=== PATIENT | male | born 1950 | race Caucasian/White ===

== ENCOUNTER → 2016-12-02 | Outpatient (CLI) | payer OTHER, MEDICARE ==
[~2016-12-02] MED LIST: AMLO10TA2 PO; APIX5TAB PO; ASPI-515 PO; CARV12.52 PO; CHOL20002 PO; DRON400T PO; FURO20TA3 PO; INDO50CA PO; LISI40TA PO; OMEP-110 PO; POTA10TA90 PO; SOTA80TA18 PO; TADA5TAB2 PO; TRIA1CAP3 PO
== END | disposition home or self-care (01) ==
LOC: CVU 07:52
PROVIDERS: ATTEND Internal Medicine Cardiovascular Disease
DX: I65.23 Occlusion and stenosis of bilateral carotid arteries (principal); I10 Essential (primary) hypertension; I48.91 Unspecified atrial fibrillation
CPT/HCPCS: 93925

== ENCOUNTER 2017-05-27 09:00 | Inpatient (IN) | payer OTHER, MEDICARE ==
[~2017-05-27] VITALS: Ht 180.3 cm; Wt 81.8 kg
[~2017-05-27 09:00] MED LIST changes: +POTA10TA6 PO; -POTA10TA90 PO
[2017-05-27 11:13] VITALS: BP 159/77
[2017-05-27] MEDS ORDERED: MULT-658 PO (11:47)
[2017-05-27] MEDS ORDERED: BISACODYL 5 MG EC TABLET PO PRN (13:00)
[2017-05-27] MEDS ORDERED: BISACODYL 10 MG SUPP PR PRN (13:00)
[2017-05-27] MEDS ORDERED: ACETAMINOPHEN 325 MG TABLET PO PRN (13:00)
[2017-05-27] MEDS ORDERED: ONDANSETRON 2MG/ML, 2ML IVPush PRN (13:00)
[2017-05-27] MEDS ORDERED: ZOLPIDEM 5MG TABLET PO PRN (13:00)
[2017-05-27 13:08] LABS: HEMOGLOBIN 17.3 g/dL (13.7-18.0)
[2017-05-27 13:17] LABS: BLOOD UREA NITROGEN 29 mg/dL (7-18)
[2017-05-27 13:21] LABS: IS PT STATUS REG ER OR PRE ER? NO
[2017-05-27] MEDS ORDERED: SOTALOL 80MG TABLET PO ONE (14:00)
[2017-05-27] MEDS ORDERED: POTASSIUM CHLORIDE 20 MEQ TAB.ER.PRT ONE (14:47)
[2017-05-27] MEDS ORDERED: FUROSEMIDE 20 MG/2 ML ONE (14:47)
[2017-05-27 15:05] VITALS: BP 134/75
[2017-05-27] MEDS: FUROSEMIDE 20 MG/2 ML IV SCH (15:08)
[2017-05-27] MEDS: POTASSIUM CHLORIDE 10 MEQ TABLET.ER PO SCH (15:09)
[2017-05-27 18:40] VITALS: BP 151/97
[2017-05-27 19:09] LABS: IS PT STATUS REG ER OR PRE ER? NO
[2017-05-27] MEDS: APIXABAN 5 MG TABLET PO SCH (20:53)
[2017-05-27] MEDS: SOTALOL 120MG TABLET PO SCH (20:53)
[2017-05-27 20:57] VITALS: BP 143/87
[2017-05-27] MEDS ORDERED: LISINOPRIL 20 MG TABLET PO SCH (21:00)
[2017-05-28 00:51] LABS: IS PT STATUS REG ER OR PRE ER? NO
[2017-05-28 02:00] VITALS: BP 135/79
[2017-05-28] MEDS ORDERED: OMEPRAZOLE 20 MG CAPSULE.DR PO SCH (07:30)
[2017-05-28] MEDS ORDERED: TRIAMTERENE-HCTZ 37.5/25 MG TABLET PO SCH (09:00)
[2017-05-28] MEDS ORDERED: AMLODIPINE 5 MG TABLET PO SCH (09:00)
[2017-05-28] MEDS ORDERED: LISINOPRIL 20 MG TABLET PO SCH (09:00)
[2017-05-28] MEDS: FUROSEMIDE 20 MG/2 ML IV SCH (09:08)
[2017-05-28] MEDS: SOTALOL 120MG TABLET PO SCH (09:08)
[2017-05-28] MEDS: POTASSIUM CHLORIDE 10 MEQ TABLET.ER PO SCH (09:08)
[2017-05-28] MEDS: APIXABAN 5 MG TABLET PO SCH (09:08)
[2017-05-28 09:11] VITALS: BP 153/80
[2017-05-28] MEDS ORDERED: SOTA120T14 PO (10:02)
== END 2017-05-28 11:30 | disposition home or self-care (01) | DRG 292 ==
LOC: 5SO 10:41 → DCLOUNGE 05-28 11:11
PROVIDERS: ADMIT Internal Medicine Cardiovascular Disease; ATTEND Internal Medicine Cardiovascular Disease
DX: I11.0 Hypertensive heart disease with heart failure (principal); D68.69 Other thrombophilia; I42.9 Cardiomyopathy, unspecified; I48.0 Paroxysmal atrial fibrillation; E66.01 Morbid (severe) obesity due to excess calories; I50.32 Chronic diastolic (congestive) heart failure; G47.33 Obstructive sleep apnea (adult) (pediatric); I34.0 Nonrheumatic mitral (valve) insufficiency; I35.1 Nonrheumatic aortic (valve) insufficiency; G89.29 Other chronic pain; K22.70 Barrett's esophagus without dysplasia; I25.10 Atherosclerotic heart disease of native coronary artery without angina pectoris; I73.9 Peripheral vascular disease, unspecified; Z68.25 Body mass index [BMI] 25.0-25.9, adult
CPT/HCPCS: 36415; 71020; 80048; 80061; 84439; 84443; 84484; 85014; 85018; 93005; J1940

== ENCOUNTER 2018-04-18 02:19 | Inpatient (IN) | payer OTHER, MEDICARE ==
[~2018-04-18] VITALS: Ht 180.3 cm; Wt 123.5 kg
[~2018-04-18 02:19] MED LIST changes: -INDO50CA PO; +INDO50CA5 PO; +MULT-658 PO; +SOTA120T14 PO
[2018-04-18] MEDS ORDERED: SODIUM CHLORIDE FLUSH 10ML SYR IVF ONE (02:30)
[2018-04-18 02:51] LABS: BASOPHILS # (AUTO) 0.04 x10^3/uL (0-0.1); BASOPHILS % (AUTO) 0 % (0-1); EOSINOPHILS # (AUTO) 0.13 x10^3/uL (0-0.4); EOSINOPHILS % (AUTO) 1 % (1-7); LYMPHOCYTES % (AUTO) 27 % (22-44); MD NO; MEAN CORPUSCULAR HEMOGLOBIN 31.6 pg (27.5-34.5); MEAN CORPUSCULAR HGB CONC 34.3 g/dL (33.2-36.2); MEAN CORPUSCULAR VOLUME 92.1 fL (81-97); MEAN PLATELET VOLUME 9.8 fL (7.4-10.4); MONOCYTES # (AUTO) 0.63 x10^3/uL (0.2-0.8); MONOCYTES % (AUTO) 7 % (2-9); NEUTROPHILS % (AUTO) 65 % (42-75); PLATELET COUNT 175 x10^3/uL (130-400); RED BLOOD COUNT 5.65 x10^6/uL (4.38-5.82); RED CELL DISTRIBUTION WIDTH 12.9 % (9.4-14.8)
[2018-04-18] MEDS ORDERED: OMEP20TA62 PO (02:53)
[2018-04-18 03:01] LABS: INTERNATIONAL NORMALIZED RATIO 1.08 (0.93-1.1); PROTHROMBIN TIME 11.1 Seconds (9.6-11.5)
[2018-04-18 03:12] LABS: ALANINE AMINOTRANSFERASE 47 U/L (12-78); ALBUMIN 3.8 g/dL (3.4-5.0); ANION GAP 5 mmol/L (5-15); CALCIUM 8.7 mg/dL (8.5-10.1); CHLORIDE 105 mmol/L (98-107); CREATININE 1.13 mg/dL (0.7-1.3)
[2018-04-18 03:16] LABS: ALKALINE PHOSPHATASE 53 U/L (45-117); BILIRUBIN,TOTAL 2.6 mg/dL (0.2-1.0); TOTAL PROTEIN 7.3 g/dL (6.4-8.2); TROPONIN I < 0.015 ng/mL (0.000-0.045)
[2018-04-18] MEDS ORDERED: FUROSEMIDE 20 MG/2 ML ONE (03:27)
[2018-04-18] MEDS ORDERED: FUROSEMIDE 40 MG/4 ML IV ONE (03:30)
[2018-04-18] MEDS ORDERED: ONDANSETRON 2MG/ML, 2ML IVPush PRN (04:00)
[2018-04-18] MEDS ORDERED: hydrALAzine 20 MG/ML, 1ML IVPush PRN (04:00)
[2018-04-18] MEDS ORDERED: BISACODYL 10 MG SUPP PR PRN (04:00)
[2018-04-18] MEDS ORDERED: POLYETHYLENE GLYCOL 17 GM PACKET PO PRN (04:00)
[2018-04-18] MEDS ORDERED: morphine SULFATE 10 MG/ML, 1ML IVPush PRN (04:00)
[2018-04-18] MEDS ORDERED: DOCUSATE 100 MG CAPSULE PO PRN (04:00)
[2018-04-18] MEDS ORDERED: ONDANSETRON ODT 4 MG PO PRN (04:00)
[2018-04-18] MEDS ORDERED: ACETAMINOPHEN 325 MG TABLET PO PRN (04:00)
[2018-04-18] MEDS ORDERED: OXYcodone/APAP 5/325MG TABLET PO PRN (04:00)
[2018-04-18] MEDS ORDERED: PROMETHAZINE 25 MG/ML, 1ML IM PRN (04:00)
[2018-04-18] MEDS ORDERED: LABETALOL 5MG/ML, 20ML IVPush PRN (04:00)
[2018-04-18 04:15] VITALS: BP 148/88
[2018-04-18] MEDS ORDERED: POTASSIUM CHLORIDE 20 MEQ TAB.ER.PRT PO ONE (04:30)
[2018-04-18 04:34] LABS: FREE T4 (FREE THYROXINE) 1.11 ng/dL (0.76-1.46); THYROID STIMULATING HORMONE 2.45 mIU/L (0.358-3.740)
[2018-04-18 05:10] LABS: HEMOGLOBIN A1C 5.8 % (4.2-6.3)
[2018-04-18 07:50] VITALS: BP 131/76
[2018-04-18] MEDS: OMEPRAZOLE 20 MG CAPSULE.DR PO SCH (08:01)
[2018-04-18] MEDS: APIXABAN 5 MG TABLET PO SCH ×2 (08:02→20:27)
[2018-04-18] MEDS: POTASSIUM CHLORIDE 20 MEQ TAB.ER.PRT PO SCH (08:02)
[2018-04-18] MEDS: MULTIVITAMIN 1 TABLET PO SCH (08:02)
[2018-04-18] MEDS: SOTALOL 120MG TABLET PO SCH ×2 (08:02→20:26)
[2018-04-18] MEDS: TRIAMTERENE-HCTZ 37.5/25 MG TABLET PO SCH (08:02)
[2018-04-18] MEDS: FUROSEMIDE 20 MG/2 ML IV SCH ×2 (08:04→18:32)
[2018-04-18 13:43] VITALS: BP 140/91
[2018-04-18 20:29] VITALS: BP 150/89
[2018-04-18] MEDS ORDERED: CHOLECALCIFEROL 1,000 UNIT TABLET PO SCH (21:00)
[2018-04-18] MEDS ORDERED: LISINOPRIL 20 MG TABLET PO SCH (21:00)
[2018-04-19 01:05] VITALS: BP 153/81
[2018-04-19 05:52] LABS: BASOPHILS # (AUTO) 0.04 x10^3/uL (0-0.1); BASOPHILS % (AUTO) 1 % (0-1); EOSINOPHILS # (AUTO) 0.19 x10^3/uL (0-0.4); EOSINOPHILS % (AUTO) 2 % (1-7); LYMPHOCYTES # (AUTO) 2.43 x10^3/uL (1-3.4); LYMPHOCYTES % (AUTO) 30 % (22-44); MD NO; MEAN CORPUSCULAR HEMOGLOBIN 31.6 pg (27.5-34.5); MEAN CORPUSCULAR HGB CONC 34.3 g/dL (33.2-36.2); MEAN CORPUSCULAR VOLUME 92.2 fL (81-97); MEAN PLATELET VOLUME 9.9 fL (7.4-10.4); MONOCYTES # (AUTO) 0.45 x10^3/uL (0.2-0.8); MONOCYTES % (AUTO) 6 % (2-9); NEUTROPHILS # (AUTO) 4.97 x10^3/uL (1.8-6.8); NEUTROPHILS % (AUTO) 62 % (42-75); PLATELET COUNT 153 x10^3/uL (130-400); RED BLOOD COUNT 5.78 x10^6/uL (4.38-5.82); RED CELL DISTRIBUTION WIDTH 13.6 % (9.4-14.8)
[2018-04-19 06:07] LABS: CHLORIDE 105 mmol/L (98-107)
[2018-04-19 06:19] LABS: ALANINE AMINOTRANSFERASE 47 U/L (12-78); ALBUMIN 3.6 g/dL (3.4-5.0); ALKALINE PHOSPHATASE 55 U/L (45-117); ANION GAP 8 mmol/L (5-15); BILIRUBIN,TOTAL 3.7 mg/dL (0.2-1.0); CALCIUM 8.9 mg/dL (8.5-10.1); CHOL/HDL RATIO 2.5; CHOLESTEROL, TOTAL 94 mg/dL (140-239); CREATININE 1.13 mg/dL (0.7-1.3); HDL CHOL % 40 % (26-37); HDL CHOLESTEROL (DIRECT) 38 mg/dL (40-60); LDL CHOLESTEROL,CALCULATED 29 mg/dL (54-169); LDL/HDL RATIO 0.8 (0.5-3.0); TOTAL PROTEIN 7.1 g/dL (6.4-8.2); TRIGLYCERIDES 137 mg/dL (50-200); VLDL CHOLESTEROL 27 mg/dL (0-25)
[2018-04-19 07:44] VITALS: BP 142/94
[2018-04-19] MEDS: TRIAMTERENE-HCTZ 37.5/25 MG TABLET PO SCH (08:44)
[2018-04-19] MEDS: MULTIVITAMIN 1 TABLET PO SCH (08:44)
[2018-04-19] MEDS: POTASSIUM CHLORIDE 20 MEQ TAB.ER.PRT PO SCH (08:44)
[2018-04-19] MEDS: SOTALOL 120MG TABLET PO SCH (08:45)
[2018-04-19] MEDS: APIXABAN 5 MG TABLET PO SCH (08:46)
[2018-04-19] MEDS: OMEPRAZOLE 20 MG CAPSULE.DR PO SCH (08:46)
[2018-04-19] MEDS: FUROSEMIDE 20 MG/2 ML IV SCH (08:46)
[2018-04-19] MEDS ORDERED: POTASSIUM CHLORIDE 20 MEQ TAB.ER.PRT PO ONE ×2 (09:00→11:00)
== END 2018-04-19 12:20 | disposition home or self-care (01) | DRG 292 ==
LOC: ED 03:43 → EDIP 03:44 → 5SO 04:10 → DCLOUNGE 04-19 12:00
PROVIDERS: ADMIT Internal Medicine; ATTEND Internal Medicine
DX: I11.0 Hypertensive heart disease with heart failure (principal); D68.69 Other thrombophilia; I48.0 Paroxysmal atrial fibrillation; I34.0 Nonrheumatic mitral (valve) insufficiency; E87.6 Hypokalemia; E66.01 Morbid (severe) obesity due to excess calories; G47.33 Obstructive sleep apnea (adult) (pediatric); G89.29 Other chronic pain; I50.23 Acute on chronic systolic (congestive) heart failure; I73.9 Peripheral vascular disease, unspecified; K22.70 Barrett's esophagus without dysplasia; Z68.38 Body mass index [BMI] 38.0-38.9, adult
CPT/HCPCS: 36415; 71045; 80053; 80061; 83036; 83735; 83880; 84100; 84436; 84439; 84443; 84484; 85025; 85610; 85730; 93005; 93306; 96374; J1940

== ENCOUNTER → 2018-05-11 | Outpatient (CLI) | payer OTHER, MEDICARE ==
[~2018-05-11] MED LIST changes: +OMEP20TA62 PO; +REGADENOSON 0.4 MG/5 ML SYRINGE ONE
== END | disposition home or self-care (01) ==
LOC: CFH 11:53
PROVIDERS: ATTEND Internal Medicine Cardiovascular Disease
DX: I48.2 Chronic atrial fibrillation (principal)
CPT/HCPCS: 78452; 93017; A9502; J2785

== ENCOUNTER 2018-07-08 06:03 | Observation (INO) | payer OTHER, MEDICARE ==
[2018-07-06 11:18] LABS: BASOPHILS # (AUTO) 0.03 x10^3/uL (0-0.1); BASOPHILS % (AUTO) 0 % (0-1); EOSINOPHILS # (AUTO) 0.19 x10^3/uL (0-0.4); EOSINOPHILS % (AUTO) 3 % (1-7); LYMPHOCYTES # (AUTO) 2.53 x10^3/uL (1-3.4); LYMPHOCYTES % (AUTO) 32 % (22-44); MD NO; MEAN CORPUSCULAR HGB CONC 34.4 g/dL (33.2-36.2); MEAN CORPUSCULAR VOLUME 92.8 fL (81-97); MEAN PLATELET VOLUME 10.2 fL (7.4-10.4); MONOCYTES # (AUTO) 0.53 x10^3/uL (0.2-0.8); MONOCYTES % (AUTO) 7 % (2-9); NEUTROPHILS # (AUTO) 4.56 x10^3/uL (1.8-6.8); NEUTROPHILS % (AUTO) 58 % (42-75); PLATELET COUNT 178 x10^3/uL (130-400); RED BLOOD COUNT 5.36 x10^6/uL (4.38-5.82); RED CELL DISTRIBUTION WIDTH 14.4 % (9.4-14.8)
[2018-07-06 11:28] LABS: ALANINE AMINOTRANSFERASE 35 U/L (12-78); ALBUMIN 3.7 g/dL (3.4-5.0); ANION GAP 6 mmol/L (5-15); CALCIUM 8.9 mg/dL (8.5-10.1); CHLORIDE 109 mmol/L (98-107)
[2018-07-06 11:30] LABS: ALKALINE PHOSPHATASE 61 U/L (45-117); BILIRUBIN,TOTAL 3.1 mg/dL (0.2-1.0); TOTAL PROTEIN 7.4 g/dL (6.4-8.2)
[~2018-07-08] VITALS: Ht 180.3 cm; Wt 120.4 kg
[~2018-07-08 06:03] MED LIST changes: -AMLO10TA2 PO; +AMLO10TA6 PO; +ATOR10TA9 PO; -CHOL20002 PO; +CHOL200052 PO; -REGADENOSON 0.4 MG/5 ML SYRINGE ONE; +SOTA120T26 PO
[2018-07-08] MEDS ORDERED: SODIUM CHLORIDE 0.9% 1,000 ML IV SCH (06:11)
[2018-07-08] MEDS ORDERED: MIDAZOLAM 1 MG/ML, 2ML ONE (07:52)
[2018-07-08] MEDS ORDERED: FENTANYL PF 250 MCG/5ML ONE (07:52)
[2018-07-08] MEDS ORDERED: SUCCINYLCHOLINE 20 MG/ML, 10ML ONE (08:07)
[2018-07-08] MEDS ORDERED: ONDANSETRON 2MG/ML, 2ML ONE (08:07)
[2018-07-08] MEDS ORDERED: ROCURONIUM 10 MG/ML,10ML ONE (08:07)
[2018-07-08] MEDS ORDERED: DEXAMETHASONE 4 MG/ML, 1ML ONE (08:07)
[2018-07-08] MEDS ORDERED: PROPOFOL 10 MG/ML, 20ML ONE (08:07)
[2018-07-08] MEDS ORDERED: HEPARIN 1,000 UNITS/ML, 30ML ONE (08:07)
[2018-07-08] MEDS ORDERED: PROTAMINE SULFATE 10 MG/ML, 5ML ONE (09:46)
[2018-07-08] MEDS ORDERED: ZOLPIDEM 5MG TABLET PO PRN (10:00)
[2018-07-08] MEDS ORDERED: ACETAMINOPHEN 325 MG TABLET PO PRN (10:00)
[2018-07-08] MEDS: APIXABAN 5 MG TABLET PO SCH ×2 (12:01→20:46)
[2018-07-08 14:30] VITALS: BP 135/83
[2018-07-08 19:39] VITALS: BP 111/64
[2018-07-08 20:43] VITALS: BP 123/77
[2018-07-08] MEDS: SOTALOL 120MG TABLET PO SCH (20:46)
[2018-07-08] MEDS: POTASSIUM CHLORIDE 10 MEQ TABLET.ER PO SCH (20:47)
[2018-07-08] MEDS ORDERED: LISINOPRIL 20 MG TABLET PO SCH (21:00)
[2018-07-08] MEDS ORDERED: ATORVASTATIN 10 MG TABLET PO SCH (21:00)
[2018-07-09 02:54] VITALS: BP 137/74
[2018-07-09 06:57] VITALS: BP 123/79
[2018-07-09] MEDS ORDERED: OMEPRAZOLE 20 MG CAPSULE.DR PO SCH (07:30)
[2018-07-09] MEDS ORDERED: AMLODIPINE 10 MG TAB PO SCH (09:00)
[2018-07-09] MEDS ORDERED: FUROSEMIDE 20 MG TABLET PO SCH (09:00)
[2018-07-09] MEDS: POTASSIUM CHLORIDE 10 MEQ TABLET.ER PO SCH (09:27)
[2018-07-09] MEDS: SOTALOL 120MG TABLET PO SCH (09:27)
[2018-07-09] MEDS: APIXABAN 5 MG TABLET PO SCH (09:27)
== END 2018-07-09 13:16 | disposition home or self-care (01) ==
LOC: CACL 06:03 → ORIP 09:51 → 5SO 11:26 → DCLOUNGE 07-09 13:02
PROVIDERS: ADMIT Internal Medicine Cardiovascular Disease; ATTEND Internal Medicine Cardiovascular Disease
DX: I48.91 Unspecified atrial fibrillation (principal); I48.92 Unspecified atrial flutter; I45.9 Conduction disorder, unspecified; I11.0 Hypertensive heart disease with heart failure; I50.32 Chronic diastolic (congestive) heart failure
CPT/HCPCS: 36415; 71046; 80053; 85025; 93308; 93613; 93655; 93656; 93662; C1730; C1732; C1759; C1766; C1893; C1894; G0378; J0330; J1100; J1644; J2250; J2405; J2704; J2720; J3010

== ENCOUNTER 2018-09-16 09:20 | Day surgery (SDC) | payer MEDICARE, OTHER ==
[~2018-09-16] VITALS: Ht 180.3 cm; Wt 118.2 kg
[2018-09-16] MEDS ORDERED: SODIUM CHLORIDE 0.9% 1,000 ML IV ONE (10:00)
[2018-09-16] MEDS ORDERED: PLEASE ENTER HEIGHT AND WEIGHT MC SCH (10:00)
[2018-09-16 10:03] VITALS: BP 131/91
[2018-09-17] MEDS ORDERED: MULT-257 PO (16:22)
[2018-09-20] MEDS ORDERED: SPIR25TA PO (14:20)
[2018-09-20] MEDS ORDERED: POTA20TA6 PO (14:20)
[2018-09-20] MEDS ORDERED: FURO40TA6 PO (14:20)
[2018-09-20] MEDS ORDERED: FERR-51 PO (14:20)
== END 2018-09-16 11:25 | disposition home or self-care (01) ==
LOC: CACL 09:20
PROVIDERS: ATTEND Internal Medicine Cardiovascular Disease
DX: I48.91 Unspecified atrial fibrillation (principal); Z53.9 Procedure and treatment not carried out, unspecified reason; I11.0 Hypertensive heart disease with heart failure; I50.32 Chronic diastolic (congestive) heart failure; I48.0 Paroxysmal atrial fibrillation; E66.9 Obesity, unspecified; Z79.899 Other long term (current) drug therapy
CPT/HCPCS: 93005

== ENCOUNTER 2018-09-28 11:19 | Day surgery (SDC) | payer MEDICARE, OTHER ==
[~2018-09-28] VITALS: Ht 180.3 cm; Wt 111.8 kg
[~2018-09-28 11:19] MED LIST changes: -AMLO10TA6 PO; +AMLO10TA8 PO; +FERR-51 PO; +FURO40TA6 PO; +MULT-257 PO; +POTA20TA6 PO; +SPIR25TA PO
[2018-09-28] MEDS ORDERED: SODIUM CHLORIDE 0.9% 1,000 ML IV ONE (11:54)
[2018-09-28 11:55] VITALS: BP 139/84
[2018-09-28] MEDS ORDERED: VERAPAMIL 2.5 MG/ML, 2ML ONE (12:53)
[2018-09-28] MEDS ORDERED: FENTANYL PF 100 MCG/2ML ONE (12:53)
[2018-09-28] MEDS ORDERED: BIVALIRUDIN 250 MG ONE (12:53)
[2018-09-28] MEDS ORDERED: TICAGRELOR 90 MG TABLET ONE (12:53)
[2018-09-28] MEDS ORDERED: HEPARIN 1,000 UNITS/ML, 10ML ONE (12:53)
[2018-09-28] MEDS ORDERED: MIDAZOLAM 1 MG/ML, 5ML ONE (12:53)
[2018-09-28] MEDS ORDERED: LIDOCAINE 2%, 20ML ONE ×2 (12:54→13:12)
== END 2018-09-28 15:37 | disposition home or self-care (01) ==
LOC: CACL 11:19
PROVIDERS: ATTEND Internal Medicine Cardiovascular Disease
DX: I25.10 Atherosclerotic heart disease of native coronary artery without angina pectoris (principal); I11.0 Hypertensive heart disease with heart failure; I50.32 Chronic diastolic (congestive) heart failure; E78.5 Hyperlipidemia, unspecified; I34.0 Nonrheumatic mitral (valve) insufficiency; G89.4 Chronic pain syndrome; I48.0 Paroxysmal atrial fibrillation; Z51.81 Encounter for therapeutic drug level monitoring; Z79.01 Long term (current) use of anticoagulants
CPT/HCPCS: 93458; 99156; C1769; C1894; J1644; J2250; J3010; J3490; Q9967; J0583

== ENCOUNTER 2019-07-20 05:30 | Day surgery (SDC) | payer MEDICARE, OTHER ==
[~2019-07-20] VITALS: Ht 180.3 cm; Wt 119.7 kg
[~2019-07-20 05:30] MED LIST changes: +INDO50CA15 PO; -INDO50CA5 PO
[2019-07-20 07:03] VITALS: BP 123/85
[2019-07-20] MEDS ORDERED: LACTATED RINGERS 1,000 ML IV SCH (07:14)
[2019-07-20] MEDS ORDERED: ASPI-496 PO (07:22)
[2019-07-20] MEDS ORDERED: METO-99 PO (07:22)
[2019-07-20] MEDS ORDERED: POTA20TA89 PO (07:22)
[2019-07-20] MEDS ORDERED: ATOR20TA37 PO (07:22)
[2019-07-20] MEDS ORDERED: LISI-170 PO (07:22)
[2019-07-20] MEDS ORDERED: OMEP20TA62 PO (07:22)
[2019-07-20] MEDS ORDERED: SPIR25TA5 PO (07:22)
[2019-07-20] MEDS ORDERED: AMLO10TA8 PO (07:22)
[2019-07-20] MEDS ORDERED: FURO-92 PO (07:22)
[2019-07-20 07:28] LABS: ALBUMIN 3.7 g/dL (3.4-5.0); ANION GAP 6 mmol/L (5-15); CALCIUM 8.7 mg/dL (8.5-10.1); CHLORIDE 109 mmol/L (98-107)
[2019-07-20 07:31] LABS: ALANINE AMINOTRANSFERASE 29 U/L (12-78); ALKALINE PHOSPHATASE 55 U/L (45-117); BILIRUBIN,TOTAL 4.2 mg/dL (0.2-1.0); CREATININE 1.32 mg/dL (0.7-1.3)
[2019-07-20] MEDS ORDERED: PROPOFOL 10 MG/ML, 20ML ONE (07:50)
[2019-07-20] MEDS ORDERED: ONDANSETRON ODT 8 MG PO PRN (08:00)
[2019-07-20] MEDS ORDERED: LABETALOL 5MG/ML, 20ML IV PRN (08:00)
[2019-07-20] MEDS ORDERED: FENTANYL PF 100 MCG/2ML IV PRN (08:00)
[2019-07-20] MEDS ORDERED: PROMETHAZINE 25 MG/ML, 1ML IV PRN (08:00)
[2019-07-20] MEDS ORDERED: hydrALAzine 20 MG/ML, 1ML IV PRN (08:00)
[2019-07-20] MEDS ORDERED: OXYcodone 5 MG/5 ML ORAL.SOL UDC PO PRN (08:00)
[2019-07-20] MEDS ORDERED: ONDANSETRON 2MG/ML, 2ML IV PRN (08:00)
[2019-07-20] MEDS ORDERED: ACETAMINOPHEN 325 MG TABLET PO PRN (08:00)
[2019-07-20] MEDS ORDERED: PROMETHAZINE 25 MG SUPP PR PRN (08:00)
== END 2019-07-20 09:20 | disposition home or self-care (01) ==
LOC: OUT 05:30
DX: Z09 Encounter for follow-up examination after completed treatment for conditions other than malignant neoplasm (principal); I48.91 Unspecified atrial fibrillation; Z88.8 Allergy status to other drugs, medicaments and biological substances; Z86.010 Personal history of colon polyps
CPT/HCPCS: 36415; 45378; 80053; 93005; J2704; J7120

== ENCOUNTER 2020-04-21 19:08 | Inpatient (IN) | payer MEDICARE, OTHER ==
[~2020-04-21] VITALS: Ht 180.3 cm; Wt 121.2 kg
[~2020-04-21 19:08] MED LIST changes: +ASPI-496 PO; +ATOR20TA37 PO; +FURO-92 PO; +LISI-170 PO; +METO-99 PO; +POTA20TA89 PO; +SPIR25TA5 PO
--- NOTE | 2020-04-21 19:37 | NUR ---
PT TRANSFERRED FROM [facility]. LAST KNOWN WELL THURSDAY AFTERNOON. PT's REPORTS CONFUSION DISORIENTATION. PT A&O X4, UP TO USE URINAL WITHOUT DIFFICULTY. FALL PRECAUTIONS IN PLACE, CALL LIGHT WITHIN REACH.
[2020-04-21] MEDS ORDERED: ASPIRIN 81 MG TABLET EC PO ONE (20:00)
--- NOTE | 2020-04-21 20:33 | NUR ---
PT FAILED DYSPHAGIA SCREEN.
--- NOTE | 2020-04-21 20:50 | NUR ---
DR. GRANADOS AT BEDSIDE.
[2020-04-21] MEDS ORDERED: ASPIRIN 81 MG TABLET CHEW ONE (20:54)
[2020-04-21] MEDS ORDERED: ASPIRIN 81 MG TABLET CHEW PO ONE (21:00)
--- NOTE | 2020-04-21 21:13 | NUR ---
REPORT GIVEN TO SOCO MOODY.
[2020-04-21] MEDS ORDERED: TAMS-11 PO (21:21)
[2020-04-21] MEDS ORDERED: ASPI-496 PO (21:21)
[2020-04-21] MEDS ORDERED: POTA10TA5 PO (21:21)
[2020-04-21] MEDS ORDERED: FURO20TA3 PO (21:21)
[2020-04-21] MEDS ORDERED: SODIUM CHLORIDE 0.9%, 500ML IVBOLUS ONE (21:30)
--- NOTE | 2020-04-21 21:32 | NUR ---
NEURO PAGED. BOT [id number] PLACED IN ROOM.
[2020-04-21 22:26] VITALS: BP 165/93
[2020-04-21] MEDS ORDERED: ACETAMINOPHEN 325 MG TABLET PO PRN (22:30)
[2020-04-21] MEDS ORDERED: ATORVASTATIN 80 MG TABLET PO SCH (22:30)
[2020-04-21] MEDS ORDERED: ONDANSETRON 2MG/ML, 2ML IVPush PRN (22:30)
[2020-04-21] MEDS ORDERED: ACETAMINOPHEN 650 MG/20.3 ML UDC PO PRN (22:30)
[2020-04-21] MEDS ORDERED: LABETALOL 5MG/ML, 20ML IV PRN (22:30)
[2020-04-21] MEDS ORDERED: HEPARIN wt. based STROKE protocol MC PRN (22:30)
[2020-04-21] MEDS ORDERED: HEPARIN 25,000 UNITS/250ML PMX 250 ML IV PRN (23:00)
[2020-04-22 00:18] LABS: BASOPHILS # (AUTO) 0.04 x10^3/uL (0-0.1); BASOPHILS % (AUTO) 1 % (0-1); EOSINOPHILS # (AUTO) 0.15 x10^3/uL (0-0.4); EOSINOPHILS % (AUTO) 2 % (1-7); LYMPHOCYTES # (AUTO) 2.23 x10^3/uL (1-3.4); LYMPHOCYTES % (AUTO) 30 % (22-44); MD NO; MEAN CORPUSCULAR HGB CONC 32.5 g/dL (33.2-36.2); MEAN CORPUSCULAR VOLUME 92.2 fL (81-97); MEAN PLATELET VOLUME 9.1 fL (7.4-10.4); MONOCYTES # (AUTO) 0.52 x10^3/uL (0.2-0.8); MONOCYTES % (AUTO) 7 % (2-9); NEUTROPHILS # (AUTO) 4.52 x10^3/uL (1.8-6.8); NEUTROPHILS % (AUTO) 61 % (42-75); PLATELET COUNT 168 x10^3/uL (130-400); RED BLOOD COUNT 5.33 x10^6/uL (4.38-5.82); RED CELL DISTRIBUTION WIDTH 15.4 % (9.4-14.8)
[2020-04-22 00:19] VITALS: BP 142/86
[2020-04-22 03:01] VITALS: BP 136/80
[2020-04-22 05:40] VITALS: BP 133/84
[2020-04-22 06:14] LABS: BASOPHILS # (AUTO) 0.03 x10^3/uL (0-0.1); BASOPHILS % (AUTO) 1 % (0-1); EOSINOPHILS # (AUTO) 0.16 x10^3/uL (0-0.4); EOSINOPHILS % (AUTO) 3 % (1-7); LYMPHOCYTES # (AUTO) 1.73 x10^3/uL (1-3.4); LYMPHOCYTES % (AUTO) 27 % (22-44); MD NO; MEAN CORPUSCULAR HEMOGLOBIN 30.8 pg (27.5-34.5); MEAN CORPUSCULAR HGB CONC 33.3 g/dL (33.2-36.2); MEAN CORPUSCULAR VOLUME 92.5 fL (81-97); MEAN PLATELET VOLUME 9.6 fL (7.4-10.4); MONOCYTES # (AUTO) 0.45 x10^3/uL (0.2-0.8); MONOCYTES % (AUTO) 7 % (2-9); NEUTROPHILS # (AUTO) 4.08 x10^3/uL (1.8-6.8); NEUTROPHILS % (AUTO) 63 % (42-75); PLATELET COUNT 159 x10^3/uL (130-400); RED BLOOD COUNT 5.08 x10^6/uL (4.38-5.82); RED CELL DISTRIBUTION WIDTH 15.1 % (9.4-14.8)
[2020-04-22 06:24] LABS: ANION GAP 5 mmol/L (5-15); CALCIUM 8.5 mg/dL (8.5-10.1); CHLORIDE 111 mmol/L (98-107); CREATININE 1.21 mg/dL (0.7-1.3)
[2020-04-22 06:25] LABS: CHOLESTEROL, TOTAL 83 mg/dL (140-239)
[2020-04-22 06:27] LABS: HDL CHOL % 49 % (26-37); HDL CHOLESTEROL (DIRECT) 41 mg/dL (40-60); LDL CHOLESTEROL,CALCULATED 15 mg/dL (54-169); LDL/HDL RATIO 0.4 (0.5-3.0); TRIGLYCERIDES 137 mg/dL (50-200); VLDL CHOLESTEROL 27 mg/dL (0-25)
[2020-04-22 07:03] VITALS: BP 126/81
[2020-04-22] MEDS ORDERED: ASPIRIN 81 MG TABLET CHEW PO/NG SCH (09:00)
[2020-04-22] MEDS ORDERED: CLOPIDOGREL 75 MG TABLET PO SCH (09:00)
[2020-04-22] MEDS: LISINOPRIL 20 MG TABLET PO SCH (09:16)
[2020-04-22] MEDS: TAMSULOSIN 0.4 MG CAP.ER.24H PO SCH (09:16)
[2020-04-22 13:28] VITALS: BP 143/70
[2020-04-22 19:16] VITALS: BP 138/64
[2020-04-22] MEDS ORDERED: ATORVASTATIN 20 MG TABLET PO SCH (21:00)
[2020-04-22] MEDS ORDERED: METOPROLOL TARTRATE 100 MG TAB PO SCH (21:00)
[2020-04-22] MEDS ORDERED: ATORVASTATIN 80 MG TABLET PO SCH (21:00)
[2020-04-22] MEDS: APIXABAN 5 MG TABLET PO SCH (21:11)
[2020-04-23 01:46] VITALS: BP 130/58
[2020-04-23 07:16] VITALS: BP 133/75
[2020-04-23] MEDS ORDERED: CLOP75TA PO ×2 (08:31)
[2020-04-23] MEDS ORDERED: ATOR-2 PO ×2 (08:31)
[2020-04-23] MEDS ORDERED: APIX5TAB PO ×3 (08:31→08:59)
[2020-04-23] MEDS ORDERED: ATOR20TA86 PO (08:53)
[2020-04-23] MEDS: TAMSULOSIN 0.4 MG CAP.ER.24H PO SCH (09:00)
[2020-04-23] MEDS: APIXABAN 5 MG TABLET PO SCH (09:00)
[2020-04-23] MEDS: LISINOPRIL 20 MG TABLET PO SCH (09:00)
== END 2020-04-23 11:43 | disposition home or self-care (01) | DRG 64 ==
LOC: ED 21:04 → EDIP 21:17 → 4WST 22:15
PROVIDERS: ADMIT Family Medicine; ATTEND Hospitalist
DX: I63.412 Cerebral infarction due to embolism of left middle cerebral artery (principal); G93.41 Metabolic encephalopathy; D68.69 Other thrombophilia; I50.32 Chronic diastolic (congestive) heart failure; R47.01 Aphasia; I48.91 Unspecified atrial fibrillation; I11.0 Hypertensive heart disease with heart failure; K21.9 Gastro-esophageal reflux disease without esophagitis; E78.5 Hyperlipidemia, unspecified; G47.33 Obstructive sleep apnea (adult) (pediatric); I49.9 Cardiac arrhythmia, unspecified; I35.8 Other nonrheumatic aortic valve disorders; R47.81 Slurred speech; Z66 Do not resuscitate; Z79.02 Long term (current) use of antithrombotics/antiplatelets; Z79.82 Long term (current) use of aspirin; Z80.42 Family history of malignant neoplasm of prostate; Z82.49 Family history of ischemic heart disease and other diseases of the circulatory system; Z86.73 Personal history of transient ischemic attack (TIA), and cerebral infarction without residual deficits; Z87.891 Personal history of nicotine dependence; Z90.49 Acquired absence of other specified parts of digestive tract; Z79.899 Other long term (current) drug therapy; Z88.8 Allergy status to other drugs, medicaments and biological substances
CPT/HCPCS: 36415; 70551; 71045; 80048; 80061; 83036; 84443; 85025; 85520; 93005; 93306; 93880; G0378; 92522-GN; J7040

== ENCOUNTER → 2021-04-16 | Outpatient (CLI) | payer MEDICARE, OTHER ==
[~2021-04-16] MED LIST changes: +AMLO-211 PO; -AMLO10TA8 PO; -ASPI-515 PO; +ASPI-963 PO; +ATOR-2 PO; +ATOR20TA86 PO; +CLOP75TA PO; -DRON400T PO; +DRON400T6 PO; +FINA5TAB4 PO; -LISI40TA PO; +LISI40TA9 PO; +MULT-449 PO; +POTA10TA5 PO; +TAMS-11 PO
[2021-04-16 11:32] LABS: CHLORIDE 106 mmol/L (98-107)
[2021-04-16 11:39] LABS: ALANINE AMINOTRANSFERASE 49 U/L (12-78); ALBUMIN 3.9 g/dL (3.4-5.0); ALKALINE PHOSPHATASE 55 U/L (45-117); ANION GAP 4 mmol/L (5-15); BILIRUBIN,TOTAL 3.5 mg/dL (0.2-1.0); CALCIUM 9.7 mg/dL (8.5-10.1); CREATININE 1.21 mg/dL (0.7-1.3); TOTAL PROTEIN 7.5 g/dL (6.4-8.2)
== END | disposition home or self-care (01) ==
LOC: STAR 09:51
PROVIDERS: ATTEND Orthopaedic Surgery
DX: Z01.818 Encounter for other preprocedural examination (principal); M17.12 Unilateral primary osteoarthritis, left knee; I49.3 Ventricular premature depolarization; R94.31 Abnormal electrocardiogram [ECG] [EKG]
CPT/HCPCS: 36415; 80053; 87081; 93005

== ENCOUNTER 2021-04-22 07:57 | Observation (INO) | payer MEDICARE, OTHER ==
[~2021-04-22] VITALS: Ht 180.3 cm; Wt 124.0 kg
[~2021-04-22 07:57] MED LIST changes: +EPINEPHRINE 1 MG/ML, 1ML ONE; +KETOROLAC 60 MG/2 ML ONE; +ROPIvacaine/PF 0.2%, 20 ML ONE; +SODIUM CHLORIDE 0.9% 50 ML ONE; +TRANEXAMIC ACID 100 MG/ML, 10ML ONE
[2021-04-22] MEDS ORDERED: ONDANSETRON 2MG/ML, 2ML IVPush PRN ×2 (08:30→13:00)
[2021-04-22] MEDS ORDERED: MAGNESIUM HYDROXIDE 8%, 30ML UDC PO PRN (08:30)
[2021-04-22] MEDS ORDERED: TRANEXAMIC ACID 1,000 MG in SODIUM CHLORIDE 0.9% 100 ML IVPB ONE (08:30)
[2021-04-22] MEDS ORDERED: DIPHENHYDRAMINE 50 MG/ML, 1ML IVPush PRN (08:30)
[2021-04-22] MEDS ORDERED: ACETAMINOPHEN 325 MG TABLET PO SCH (08:30)
[2021-04-22] MEDS ORDERED: ONDANSETRON 4 MG TABLET PO PRN (08:30)
[2021-04-22] MEDS ORDERED: PSYLLIUM PACKET PO PRN (08:30)
[2021-04-22] MEDS ORDERED: PROMETHAZINE 12.5 MG SUPP PR PRN (08:30)
[2021-04-22] MEDS ORDERED: ALUMINUM/MAG/SIMETHICONE 30 ML UDC PO PRN (08:30)
[2021-04-22] MEDS ORDERED: METOCLOPRAMIDE 5 MG/ML, 2ML IVPush PRN (08:30)
[2021-04-22] MEDS ORDERED: POLYETHYLENE GLYCOL 17 GM PACKET PO PRN (08:30)
[2021-04-22] MEDS ORDERED: SENNA/DOCUSATE TABLET PO PRN (08:30)
[2021-04-22] MEDS ORDERED: HYDROmorphone 1 MG/ML, 1ML INJ IVPush PRN ×2 (08:30→13:00)
[2021-04-22] MEDS ORDERED: TRANEXAMIC ACID 100 MG/ML, 10ML ONE (08:44)
[2021-04-22] MEDS: AMLODIPINE 10 MG TAB PO SCH (09:00)
[2021-04-22] MEDS ORDERED: APIXABAN 5 MG TABLET PO SCH (09:00)
[2021-04-22] MEDS: POTASSIUM CHLORIDE 10 MEQ TABLET.ER PO SCH (09:00)
[2021-04-22] MEDS: SPIRONOLACTONE 25 MG TABLET PO SCH (09:00)
[2021-04-22] MEDS: FUROSEMIDE 20 MG TABLET PO SCH (09:00)
[2021-04-22] MEDS: LISINOPRIL 20 MG TABLET PO SCH (09:00)
[2021-04-22 10:07] VITALS: BP 143/87
[2021-04-22] MEDS ORDERED: CHLORHEXIDINE 15 ML UDC ONE (10:28)
[2021-04-22] MEDS ORDERED: CHLORHEXIDINE 15 ML UDC PO ONE (10:30)
[2021-04-22] MEDS ORDERED: LACTATED RINGERS 1,000 ML IV SCH (10:30)
[2021-04-22] MEDS ORDERED: BUPIVACAINE/PF 0.25% ONE (10:48)
[2021-04-22] MEDS ORDERED: NEOSTIGMINE 1 MG/ML, 10ML ONE (10:48)
[2021-04-22] MEDS ORDERED: CEFAZOLIN 1,000 MG ONE ×2 (10:48→12:52)
[2021-04-22] MEDS ORDERED: GLYCOPYRROLATE 0.2MG/1ML, 5ML ONE (10:48)
[2021-04-22] MEDS ORDERED: PROPOFOL 10 MG/ML, 20ML ONE (10:48)
[2021-04-22] MEDS ORDERED: FENTANYL PF 250 MCG/5ML ONE (10:48)
[2021-04-22] MEDS ORDERED: ROCURONIUM 10MG/ML,5ML ONE (10:48)
[2021-04-22] MEDS ORDERED: LIDOCAINE-MPF 2% ,5ML ONE (11:41)
[2021-04-22] MEDS ORDERED: hydrALAzine 20 MG/ML, 1ML IV PRN (13:00)
[2021-04-22] MEDS ORDERED: MEPERIDINE/PF 25MG/0.5ML IVPush PRN (13:00)
[2021-04-22] MEDS ORDERED: LABETALOL 5MG/ML, 20ML IV PRN (13:00)
[2021-04-22] MEDS ORDERED: morphine SULFATE 10 MG/ML, 1ML IVPush PRN (13:00)
[2021-04-22] MEDS ORDERED: OXYcodone 5 MG/5 ML ORAL.SOL UDC PO PRN (13:00)
[2021-04-22] MEDS ORDERED: POTASSIUM CHLORIDE 20 MEQ in D5%-0.45% NACL 1,000 ML IV SCH (13:13)
[2021-04-22] MEDS ORDERED: LABETALOL 5MG/ML, 20ML ONE (13:20)
[2021-04-22] MEDS ORDERED: FENTANYL PF 100 MCG/2ML ONE ×2 (13:25→15:13)
[2021-04-22] MEDS ORDERED: DIPHENHYDRAMINE 25 MG CAPSULE PO PRN (13:30)
[2021-04-22] MEDS ORDERED: KETOROLAC 30 MG/1 ML ONE (15:13)
[2021-04-22] MEDS ORDERED: OXYcodone 5 MG/5 ML ORAL.SOL UDC ONE (15:14)
[2021-04-22] MEDS: KETOROLAC 30 MG/1 ML IV SCH ×2 (15:15→22:15)
[2021-04-22] MEDS: FENTANYL PF 100 MCG/2ML IV PRN ×3 (15:20→15:30)
[2021-04-22 16:30] VITALS: BP 139/90
[2021-04-22 18:34] VITALS: BP 126/85
[2021-04-22 20:15] VITALS: BP 145/85
[2021-04-22] MEDS: FINASTERIDE 5 MG TABLET PO SCH (20:15)
[2021-04-22] MEDS: TAMSULOSIN 0.4 MG CAP.ER.24H PO SCH (20:15)
[2021-04-22] MEDS: DOCUSATE 100 MG CAPSULE PO SCH ×2 (20:15→21:00)
[2021-04-22] MEDS: MULTIVITAMIN 1 TABLET PO SCH (20:16)
[2021-04-22] MEDS: OXYcodone IR 5MG TABLET PO PRN (20:16)
[2021-04-22] MEDS ORDERED: ATORVASTATIN 20 MG TABLET PO SCH (21:00)
[2021-04-22] MEDS ORDERED: METOPROLOL TARTRATE 100 MG TAB PO SCH (21:00)
[2021-04-22] MEDS: CEFAZOLIN PMX 1GM/50ML 50 ML IVPB SCH (22:15)
[2021-04-23] MEDS: ACETAMINOPHEN 325 MG TABLET PO SCH ×3 (01:01→08:32)
[2021-04-23 01:02] VITALS: BP 148/97
[2021-04-23] MEDS: KETOROLAC 30 MG/1 ML IV SCH (05:43)
[2021-04-23] MEDS: APIXABAN 5 MG TABLET PO SCH ×2 (05:43→08:31)
[2021-04-23] MEDS: OXYcodone IR 5MG TABLET PO PRN ×2 (05:43→10:20)
[2021-04-23] MEDS: CEFAZOLIN PMX 1GM/50ML 50 ML IVPB SCH (05:44)
[2021-04-23] MEDS ORDERED: DEXAMETHASONE 4 MG/ML, 1ML IVPush ONE (06:00)
[2021-04-23] MEDS ORDERED: OMEPRAZOLE 20 MG CAPSULE.DR PO SCH (06:00)
[2021-04-23] MEDS ORDERED: ENOXAPARIN 40 MG/0.4 ML SQ SCH (06:00)
[2021-04-23 06:41] VITALS: BP 126/71
[2021-04-23] MEDS: FUROSEMIDE 20 MG TABLET PO SCH (08:31)
[2021-04-23] MEDS: AMLODIPINE 10 MG TAB PO SCH (08:32)
[2021-04-23] MEDS: SPIRONOLACTONE 25 MG TABLET PO SCH (08:32)
[2021-04-23] MEDS: POTASSIUM CHLORIDE 10 MEQ TABLET.ER PO SCH (08:32)
[2021-04-23] MEDS: LISINOPRIL 20 MG TABLET PO SCH (08:32)
[2021-04-23] MEDS: TAMSULOSIN 0.4 MG CAP.ER.24H PO SCH (08:32)
[2021-04-23] MEDS: MULTIVITAMIN 1 TABLET PO SCH (08:32)
[2021-04-23] MEDS: DOCUSATE 100 MG CAPSULE PO SCH (08:32)
[2021-04-23] MEDS: FINASTERIDE 5 MG TABLET PO SCH (08:46)
[2021-04-23 10:12] VITALS: BP 143/83
== END 2021-04-23 12:27 | disposition home or self-care (01) ==
LOC: OUT 07:57 → ORIP 08:03 → 4NE 16:22
PROVIDERS: ADMIT Orthopaedic Surgery; ATTEND Orthopaedic Surgery
DX: M17.12 Unilateral primary osteoarthritis, left knee (principal); M71.22 Synovial cyst of popliteal space [Baker], left knee; I11.0 Hypertensive heart disease with heart failure; I50.32 Chronic diastolic (congestive) heart failure; E66.9 Obesity, unspecified; G47.33 Obstructive sleep apnea (adult) (pediatric); I48.91 Unspecified atrial fibrillation; K21.9 Gastro-esophageal reflux disease without esophagitis; I42.9 Cardiomyopathy, unspecified; E78.5 Hyperlipidemia, unspecified; Z86.73 Personal history of transient ischemic attack (TIA), and cerebral infarction without residual deficits; Z79.899 Other long term (current) drug therapy
CPT/HCPCS: 27447; 36415; 73560; 85014; 85018; 96361; 96365; 96366; 96375; 96376; 97110; 97161; C1713; C1776; G0378; J0171; J0690; J1100; J1885; J2704; J2710; J2795; J3010; J3480; J3490; J7120